=== PATIENT | female | born 1950 | race Caucasian/White ===

== ENCOUNTER → 2018-07-05 09:02 | Outpatient (CLI) | payer MEDICARE, BC, SELFPAY ==
--- NOTE | 2018-07-05 | DI.MG.S_ITS ---
BILATERAL DIGITAL SCREENING MAMMOGRAM 3D/2D WITH CAD: 07/05/2018 CLINICAL: Routine screening. Family history of breast cancer. Comparison is made to exams dated: 10/31/2016 mammogram, 06/17/2014 mammogram - [facility], and 03/13/2012 mammogram - [facility]. The tissue of both breasts is heterogeneously dense. This may lower the sensitivity of mammography. Current study was also evaluated with a Computer Aided Detection (CAD) system. No significant masses, calcifications, or other findings are seen in either breast. There has been no significant interval change. IMPRESSION: NEGATIVE There is no mammographic evidence of malignancy. A 1 year screening mammogram is recommended. This exam was interpreted at Station ID: [id number]. NOTE: For mammograms, a report in lay terms will be sent to the patient. Approximately 15% of breast malignancies will not be visualized mammographically. In the management of a palpable breast mass, a negative mammogram must not discourage biopsy of a clinically suspicious lesion. Electronically Signed By: Nory falcon/ilda:07/07/2018 08:40:58 letter sent: Normal Exam ACR BI-RADS Category 1: Negative [id number]
== END ==
PROVIDERS: Family Provider Internal Medicine; PCP Internal Medicine; Visit Provider Internal Medicine
DX: Z12.31 Encounter for screening mammogram for malignant neoplasm of breast (principal); Z80.3 Family history of malignant neoplasm of breast
CPT/HCPCS: 77063; 77067

== ENCOUNTER → 2018-09-29 14:08 | Outpatient (CLI) | payer MEDICARE, BC, SELFPAY ==
--- NOTE | 2018-09-29 14:13 | DI.US.S_ITS ---
PROCEDURE: US THYROID INDICATIONS: NON TOXIC GOITER TECHNIQUE: Real-time scanning was performed of the thyroid gland, with image documentation. COMPARISON: [facility], US, THYROID, 10/15/2016, 13:16. FINDINGS: Right: Thyroid lobe measures 3.8 x 1.0 x 1.4 cm, and is homogeneous in echotexture. Left: Thyroid lobe measures 3.5 x 1.0 x 1.2 cm, and is homogenous in echotexture. Isthmus: 3.0 mm thick. Nodule number: 1 Location: Left superior Size: 0.2 x 0.1x 0.2 cm. Composition: Cystic Echogenicity: Anechoic Shape: wider than tall. Margins: Smooth Echogenic foci: None Total points: 0 ACR TI-RADS category: Benign colloid cyst. Nodule number: 2 Location: Left mid Size: Unchanged 0.5 x 0.3 x 0.4 cm. Composition: Solid Echogenicity: Isoechoic Shape: wider than tall. Margins: Smooth Echogenic foci: None Total points: 3 ACR TI-RADS category: Mildly suspicious Nodule number: 3 Location: Right mid Size: Unchanged 0.4 x 0.3 x 0.3 cm. Composition: Predominantly solid Echogenicity: Isoechoic Shape: wider than tall. Margins: Smooth Echogenic foci: None Total points: 3 ACR TI-RADS category: Mildly suspicious Nodule number: 4 Location: Right inferior lateral Size: New measuring 0.4 x 0.3 x 0.3 cm. Composition: Predominately solid Echogenicity: Isoechoic Shape: wider than tall. Margins: Smooth Echogenic foci: None Total points: 3 ACR TI-RADS category: Mildly suspicious Nodule number: 5 Location: Right inferior Size: No significant change at 1.4 x 0.8 x 1.0 cm. Composition: Solid Echogenicity: Isoechoic Shape: wider than tall. Margins: Smooth Echogenic foci: None Total points: 4 ACR TI-RADS category: Moderately suspicious IMPRESSION: Bilateral thyroid nodules as above. Recommend continued followup ultrasound as detailed below. ACR TI-RADS definitions and recommendations: TI-RADS 1 (benign): 0 points. FNA not needed. TI-RADS 2 (not suspicious): 2 points. FNA not needed. TI-RADS 3 (mildly suspicious): 3 points. * FNA if 2.5 cm or larger, follow up if 1.5 cm or larger (at 1, 3, and 5 years). TI-RADS 4 (moderately suspicious): 4-6 points. * FNA if 1.5 cm or larger, follow up if 1 cm or larger (at 1, 2, 3, and 5 years). TI-RADS 5 (highly suspicious): 7 points or more. * FNA if 1 cm or larger, follow up if 0.5 cm or larger (every year for 5 years). Dictated by: Loyd Carty [facility] Interpreted: Rodolfo Oconnell MD on 09/29/2018 at 15:56 Approved by: Rodolfo Oconnell M.D. on 09/29/2018 at 16:55
--- NOTE | 2018-09-29 14:13 | DI.US.S_ITS ---
PROCEDURE: US PELVIC COMPLETE INDICATIONS: PELVIC AND PERINEAL PAIN TECHNIQUE: Real-time scanning was performed of the pelvic organs, with image documentation. Additional endovaginal scanning was necessary due to incomplete visualization of the adnexal and endometrial structures by transabdominal scanning. COMPARISON: None. FINDINGS: Transabdominal scanning: Limited scanning through the kidneys shows no hydronephrosis. No pathologic free abdominal or pelvic fluid. Endovaginal scanning: Uterus: Uterus is normal in size at 6.6 x 3.2 x 4.1 cm. The endometrium measures 1.9 mm in combined thickness. Anterior intramural fibroid measuring 2.2 x 1.3 x 1.8 cm. Ovaries: Ovaries normal in size measuring 2.7 x 2.6 x 1.5 cm on the right and 3.0 x 1.8 x 1.5 cm on the left. Simple cyst associated with the left ovary measuring 1.3 cm. Tubular shaped cystic structure seen adjacent to the right ovary with appearance suggesting hydrosalpinx measuring roughly 1.3 x 3.4 cm. IMPRESSION: 1. 2.2 cm intramural fibroid. 2. Probable hydrosalpinx on the right. Recommend short-term followup pelvic ultrasound in 6-12 weeks. 3. Simple left ovarian cyst. Dictated by: Loyd Carty [facility] Interpreted: Rodolfo Oconnell MD on 09/29/2018 at 16:03 Approved by: Rodolfo Oconnell M.D. on 09/29/2018 at 16:55
== END ==
PROVIDERS: Family Provider Internal Medicine; PCP Internal Medicine; Visit Provider Internal Medicine
DX: E04.2 Nontoxic multinodular goiter (principal); D25.1 Intramural leiomyoma of uterus; N83.292 Other ovarian cyst, left side; R10.2 Pelvic and perineal pain
CPT/HCPCS: 76536; 76830; 76856

== ENCOUNTER → 2018-11-24 09:45 | Outpatient (CLI) | payer MEDICARE, BC, SELFPAY ==
--- NOTE | 2018-11-24 | DI.US.S_ITS ---
PROCEDURE: US PELVIC COMPLETE INDICATIONS: PELVIC AND PERINEAL PAIN TECHNIQUE: Real-time scanning was performed of the pelvic organs, with image documentation. Additional endovaginal scanning was necessary due to incomplete visualization of the adnexal and endometrial structures by transabdominal scanning. COMPARISON: [facility], US, US THYROID, 09/29/2018, 14:23. [facility], US, THYROID, 10/15/2016, 13:16. [facility], US, PVE UNILATERAL LEFT, 06/27/2016, 19:14. [facility], US, US PELVIC COMPLETE, 09/29/2018, 14:41. FINDINGS: Transabdominal scanning: Limited scanning through the kidneys shows no hydronephrosis. No pathologic free abdominal or pelvic fluid. Endovaginal scanning: Uterus: Uterus is normal in size at 6.5 x 3.2 x 5.4 cm. The endometrium measures 0.3 cm in combined thickness. There is a 2.2 x 1.3 x 1.9 cm anterior intramural fibroid (previously measured 2.2 x 1.3 x 1.8 cm on 09/29/18) unchanged from prior comparison exam. Ovaries: Left ovary measures 2.5 x 1.9 x 2.0 cm. Right ovary measures 2.2 x 1.7 x 2.0 cm. There is a 1.3 x 1.1 x 1.1 cm oval circumscribed anechoic cyst with posterior acoustic enhancement within the left ovary, consistent with a simple follicle/cyst. There is a large right adnexal cystic structure with internal septations measuring 2.9 x 1.7 x 3.1 cm, suggestive of a right hydrosalpinx; this demonstrates no abnormal vascularity on Doppler ultrasound and previously measured 3.7 x 1.3 x 2.9 cm on 09/29/18. IMPRESSION: 1. Redemonstrated probable right hydrosalpinx, which does not appear significantly changed from prior exam of 09/29/18. Continued sonographic surveillance recommended. 2. 1.3 cm left follicular cyst involving the left ovary. 3. Stable appearance of a 2.2 cm intramural fibroid when compared with prior exam of 09/29/18. Dictated by: Loyd Carty [facility] Interpreted: Js Rodriguez MD on 11/24/2018 at 12:01 Approved by: Js Rodriguez M.D. on 11/24/2018 at 17:12
== END ==
PROVIDERS: PCP Internal Medicine; Visit Provider Internal Medicine
DX: R10.2 Pelvic and perineal pain (principal); D25.1 Intramural leiomyoma of uterus; N83.02 Follicular cyst of left ovary
CPT/HCPCS: 76830; 76856

== ENCOUNTER → 2019-08-19 10:37 | Outpatient (CLI) | payer MEDICARE, BC, SELFPAY ==
--- NOTE | 2019-08-19 | DI.US.S_ITS ---
PROCEDURE: US PELVIC COMPLETE INDICATIONS: CHRONIC SALPINGITIS TECHNIQUE: Real-time scanning was performed of the pelvic organs, with image documentation. Additional endovaginal scanning was necessary due to incomplete visualization of the adnexal and endometrial structures by transabdominal scanning. COMPARISON: [facility], , PELVIC COMPLETE, 11/24/2018, 10:05. [facility], , PELVIC COMPLETE, 09/29/2018, 14:41. FINDINGS: Transabdominal scanning: Limited scanning through the kidneys shows no hydronephrosis. No pathologic free abdominal or pelvic fluid. Endovaginal scanning: Uterus: Uterus is normal in size at 3.2 x 5.3 x 7.1 cm, anteverted. The endometrium measures 1.0 mm in combined thickness. Note is made of a small uterine fibroid measuring 1.8 x 1.4 x 2.0 cm and the left anterior intramural space Ovaries: The right ovary measures 2.3 x 1.4 x 1.2 cm. There is a somewhat tubular structure measuring 1.8 x 1.7 cm in axial dimension and 3.2 cm in length potentially chronic hydrosalpinx. On the left the ovary measures 1.4 x 1.8 x 2.9 cm and contains a simple cyst measuring 1.2 x 1.1 x 1.2 cm IMPRESSION: No significant change from the prior study performed by ultrasound 11/24/18 identifying a somewhat tubular structure adjacent to the right ovary consistent with mild right hydrosalpinx. Dictated by: Christophe Watson M.D. on 08/19/2019 at 12:35 Approved by: Christophe Watson M.D. on 08/19/2019 at 12:44
== END ==
PROVIDERS: PCP Internal Medicine; Visit Provider Internal Medicine
DX: N70.11 Chronic salpingitis (principal); N83.292 Other ovarian cyst, left side
CPT/HCPCS: 76830; 76856

== ENCOUNTER → 2019-10-07 13:35 | Outpatient (CLI) | payer MEDICARE, BC, SELFPAY | PROVIDERS: PCP Internal Medicine; Visit Provider Internal Medicine | DX: M85.852 Other specified disorders of bone density and structure, left thigh (principal); Z78.0 Asymptomatic menopausal state | CPT/HCPCS: 77080 ==

== ENCOUNTER → 2021-01-02 19:12 | Outpatient (ROUT) | payer MEDICARE, BC, SELFPAY ==
[2021-01-02 19:56] LABS: Aspartate Aminotransferase 32 IU/L (14-36); BUN Creatinine Ratio 29.4 (6-22); Blood Urea Nitrogen 15 mg/dL (7-17); Calcium 10.2 mg/dL (8.4-10.2); Carbon Dioxide 32 mmol/L (22-32); Chloride 97 mmol/L (98-107); Cholesterol 152 mg/dL (140-199); Estimated Glomerular Filt Rate > 60.0 mL/min (>60); Glucose 86 mg/dL (80-110); HDL Cholesterol 76 mg/dL (40-60); HEMOLYSIS < 15 (0-50); LDL Cholesterol Calculated 60 mg/dL (<100); Potassium 3.9 mmol/L (3.4-5.1); Sodium 137 mmol/L (137-145); Triglycerides 79 mg/dL (35-150)
[2021-01-02 20:19] LABS: TSH w/ Reflex to FT4 1.74 uIU/mL (0.47-4.68)
== END ==
PROVIDERS: PCP Internal Medicine; Visit Provider Internal Medicine
DX: I10 Essential (primary) hypertension (principal); E78.2 Mixed hyperlipidemia; E04.9 Nontoxic goiter, unspecified; E83.52 Hypercalcemia
CPT/HCPCS: 80048; 80061; 84443; 84450

== ENCOUNTER → 2021-10-17 10:08 | Outpatient (CLI) | payer MEDICARE, BC, SELFPAY ==
--- NOTE | 2021-10-17 | DI.CT.S_ITS ---
PROCEDURE: CT SINUS SCREEN WO CON INDICATIONS: Nasal polyp, unspecified TECHNIQUE: Noncontrast 3.0 mm axial images acquired from the frontal sinuses to the mid-sella, with coronal and sagittal reformats. For radiation dose reduction, the following was used: automated exposure control, adjustment of mA and/or kV according to patient size. COMPARISON: None. FINDINGS: Frontal sinuses, frontoethmoid recesses, and ethmoid air cells are clear bilaterally. Aerated secretions completely fill the right sphenoid sinus and partially fills the left sphenoid sinus. Sphenoid ethmoid recesses are obstructed. Aerated secretions fill much of the left maxillary sinus with a fluid level. The left maxillary sinus outflow tract is considerably narrowed but not entirely obstructed. The right maxillary sinus outflow tract is widely patent. There is no paranasal sinus wall thickening or sclerosis to suggest chronic/recurrent sinusitis. Expansile lesion in the left nasal cavity is suggestive of a polyp. There is demineralization or erosion of the left middle and inferior nasal turbinates. Small des bullosa on the right. No Eugenio cell. IMPRESSION: Suspected expansile left nasal cavity polyp/mass with erosive changes of the left inferior and middle nasal turbinates. Findings of acute sinusitis in the left maxillary sinus and bilateral sphenoid sinuses. Dictated by: Obed Thompson M.D. on 10/17/2021 at 10:44 Approved by: Obed Thompson M.D. on 10/17/2021 at 10:47
== END ==
PROVIDERS: PCP Internal Medicine; Referring Provider Otolaryngology; Visit Provider Otolaryngology
DX: J33.9 Nasal polyp, unspecified (principal); J01.80 Other acute sinusitis; D16.4 Benign neoplasm of bones of skull and face
CPT/HCPCS: 70486

== ENCOUNTER → 2021-12-20 15:17 | Outpatient (CLI) | payer MEDICARE, BC, SELFPAY ==
[2021-12-20 17:23] LABS: Estimated Glomerular Filt Rate > 60 mL/min (>60)
== END ==
PROVIDERS: PCP Internal Medicine; Referring Provider Otolaryngology; Visit Provider Otolaryngology
DX: Z01.812 Encounter for preprocedural laboratory examination (principal)
CPT/HCPCS: 36415; 82565

== ENCOUNTER → 2022-03-23 08:44 | Outpatient (CLI) | payer MEDICARE, BC, SELFPAY ==
[2022-03-23 09:32] LABS: Hemoglobin 12.9 g/dL (12.0-16.0); Mean Corpuscular HGB Conc 34.8 % (30-36); Mean Corpuscular Hemoglobin 32.3 PG (26-34); Mean Corpuscular Volume 92.7 fL (80-100); Platelet Count 295 X10^3/uL (150-400); Red Blood Cell Count 3.99 X10^6/uL (4.0-5.2); Red Cell Distribution Width 13.2 % (11.6-14.8); White Blood Cell Count 5.2 X10^3/uL (4.5-11.0)
[2022-03-23 09:45] LABS: Alanine Aminotransferase 16 IU/L (<35); Albumin 4.6 g/dL (3.5-5.0); Albumin Globulin Ratio 1.8 (1.0-2.8); Alkaline Phosphatase 44 U/L (38-126); Aspartate Aminotransferase 26 IU/L (14-36); BUN Creatinine Ratio 27.3 (6-22); Bilirubin Total 0.7 mg/dL (0.2-1.3); Blood Urea Nitrogen 15 mg/dL (7-17); Calcium 9.5 mg/dL (8.4-10.2); Carbon Dioxide 37 mmol/L (22-32); Chloride 96 mmol/L (98-107); Cholesterol 146 mg/dL (140-199); Estimated Glomerular Filt Rate > 60 mL/min (>60); Globulin 2.6 g/dL (1.7-4.1); Glucose 77 mg/dL (80-110); HDL Cholesterol 63 mg/dL (40-60); HEMOLYSIS < 15 (0-50); LDL Cholesterol Calculated 61 mg/dL (<100); Potassium 3.3 mmol/L (3.4-5.1); Sodium 137 mmol/L (137-145); Total Protein 7.2 g/dL (6.3-8.2); Triglycerides 111 mg/dL (35-150)
[2022-03-23 10:14] LABS: TSH w/ Reflex to FT4 1.62 uIU/mL (0.47-4.68)
[2022-03-25 05:36] LABS: Calcium 9.9 mg/dL (8.7-10.3); Parathyroid Hormone, Intact 43 pg/mL (15-65)
== END ==
PROVIDERS: PCP Internal Medicine; Referring Provider Internal Medicine; Visit Provider Internal Medicine
DX: E04.1 Nontoxic single thyroid nodule (principal); I10 Essential (primary) hypertension; E78.2 Mixed hyperlipidemia; Z86.39 Personal history of other endocrine, nutritional and metabolic disease
CPT/HCPCS: 36415; 80053; 80061; 82310; 83970; 84443; 85027

== ENCOUNTER → 2022-04-23 09:25 | Outpatient (CLI) | payer MEDICARE, BC, SELFPAY ==
--- NOTE | 2022-04-23 09:26 | DI.US.S_ITS ---
PROCEDURE: US THYROID INDICATIONS: THYROID NODULE FOLLOW UP TECHNIQUE: Real-time scanning was performed of the thyroid gland, with image documentation. COMPARISON: [facility], US, US THYROID, 09/29/2018, 14:23. FINDINGS: Right: 4.7 x 1.5 x 1.1 cm. Left: 3.8 x 1.1 x 1.3 cm Isthmus: 0.3 cm. Multiple thyroid nodules are present, subcentimeter nodules that appear to be colloid cysts do not require dedicated follow-up and are not explicitly outlined on this report. Nodule 1: Right mid region measuring 4 x 4 x 3 mm, stable from prior. Solid and hypoechoic. This does not require dedicated follow-up. Nodule 2: Right inferior region measuring 17 x 9 x 12 mm, previously 14 x 8 x 10 mm. It is solid and hyperechoic, with smooth margins. This appears taller than wide. TR-4 FNA is recommended. IMPRESSION: Right inferior thyroid nodule is taller than wide and has slightly grown compared to prior imaging. TR 4. FNA is recommended. Dictated by: Teofilo Wan M.D. on 04/23/2022 at 15:23 Approved by: Teofilo Wan M.D. on 04/23/2022 at 15:27
== END ==
PROVIDERS: PCP Internal Medicine; Referring Provider Internal Medicine; Visit Provider Internal Medicine
DX: Z78.0 Asymptomatic menopausal state (principal); E04.2 Nontoxic multinodular goiter; M85.89 Other specified disorders of bone density and structure, multiple sites; Z86.39 Personal history of other endocrine, nutritional and metabolic disease; Z13.820 Encounter for screening for osteoporosis; Z85.828 Personal history of other malignant neoplasm of skin
CPT/HCPCS: 76536; 77080

== ENCOUNTER → 2022-05-01 08:20 | Outpatient (CLI) | payer MEDICARE, BC, SELFPAY ==
--- NOTE | 2022-05-01 | PATH_ITS ---
Note [facility] Accession Number: [id number] TESTS RESULT FLAG UNITS REF RANGE LAB Clinician Provided Cytology Information No. of containers..01 Other (Miscellaneous) No. of containers..00 Previously Prepared Cytology Slide Source: RIGHT THYROID NODULE DIAGNOSIS: RIGHT THYROID NODULE, FINE NEEDLE ASPIRATION. NEGATIVE FOR MALIGNANT CELLS. [place] CATEGORY II. SPECIMEN CONSISTS OF BENIGN FOLLICULAR CELLS, HEMOSIDERIN-LADEN MACROPHAGES, COLLOID, AND BLOOD. THIS PATTERN IS CONSISTENT WITH A BENIGN FOLLICULAR NODULE. Pathologist ICD10: E04.1 Signed out by: Ananya Jimenez MD, Pathologist NPI- [id number] Performed by: Sariah Santos, [employer] ([facility]) Gross description: 30 CC, COLORLESS, CLEAR RECIEVED: IN CYTOLYT WITH 5 ALCOHOL FIXED AND 5 QUICK STAINED SLIDES ALSO 1 RNA VIAL WAS RECEIVED. /[facility] 05/02/[address] [place] [address] FLAG LEGEND: L-Low Normal,H-High Normal,LL-Alert Low,HH-Alert High <-Panic Low,>-Panic High,A-Abnormal,AA-Critical Abnormal Performed at: 01 =Z [facility] Cytology [address], [place] [address] Smooth Montalvo MD, Performed at: 01 [facility] Cytology [address], [place], [place] [id number] MD Smooth Montalvo MD Phone: [phone]
--- NOTE | 2022-05-01 08:22 | DI.US.S_ITS ---
PROCEDURE: US FINE NEEDLE ASPIRATION INDICATIONS: NODULE TECHNIQUE: The indications, alternatives, benefits, risks, and complications of the procedure were explained to the patient. Written informed consent was obtained and placed in the chart. The thyroid region was examined sonographically and a site was chosen for ultrasound guided percutaneous sampling. The skin was prepared and draped in the usual fashion, and anesthetized with 1% lidocaine infiltrated from the skin down to the thyroid gland. Multiple passes were then performed, with contents emptied into an appropriate pathology specimen container. A bandage was applied to the area of access at completion of the study. COMPARISON: None. FINDINGS: Location(s) of lesion(s) sampled: Right inferior thyroid [place]: 25 gauge hypodermic needles. Number of passes: 6 Medications: 1% lidocaine for local anaesthesia. Complications: None. IMPRESSION: Successful ultrasound-guided thyroid nodule fine needle aspiration, with cytology results pending. Please see chart below for management recommendations based on cytology results. [facility] ReportingRecommendationsNon-diagnostic* Repeat US-guided FNA, with on-site cytology evaluation if possible. * Repeated non-diagnostic nodules without high suspicion US features: close observation vs surgical consult. * Consider surgery if nodule has high suspicion US features, grows >20% in 2 dimensions on followup, or patient has clinical risk factors for malignancy. Benign* If nodule has high suspicion US features: repeat US and FNA within 12 months. * If nodule has low to intermediate suspicion US features: repeat US at 12-24 months. If nodule grows (20% increase in at least 2 dimensions, with minimal increase of 2 mm or >50% change in volume), or development of new suspicious US features, then repeat FNA or continue followup. * If nodule has very low suspicion US features: followup US at >24 months. Atypia of undetermined significance, follicular lesion of undetermined significanceRepeat FNA, molecular testing, followup US, or surgical consult.Follicular neoplasm, suspicious for follicular neoplasmSurgical consult; also consider molecular testing. Suspicious for malignancySurgical consult.MalignantSurgical consult. Dictated by: Nory Rodriguez M.D. on 05/01/2022 at 12:53 Approved by: Nory Rodriguez M.D. on 05/01/2022 at 12:53
== END ==
PROVIDERS: PCP Internal Medicine; Referring Provider Internal Medicine; Visit Provider Internal Medicine
DX: E04.1 Nontoxic single thyroid nodule (principal)
CPT/HCPCS: 10005

== ENCOUNTER → 2023-11-26 10:43 | Outpatient (CLI) | payer MEDICARE, BC, SELFPAY ==
[2023-11-26 11:57] LABS: Aspartate Aminotransferase 30 IU/L (14-36); BUN Creatinine Ratio 27.5 (6-22); Blood Urea Nitrogen 14 mg/dL (7-17); Carbon Dioxide 31 mmol/L (22-32); Chloride 98 mmol/L (98-107); Cholesterol 149 mg/dL (140-199); Estimated Glomerular Filt Rate > 60 mL/min (>60); Glucose 85 mg/dL (80-110); HDL Cholesterol 81 mg/dL (40-60); HEMOLYSIS < 15 (0-50); LDL Cholesterol Calculated 53 mg/dL (<100); Potassium 4.2 mmol/L (3.4-5.1); Sodium 136 mmol/L (137-145); Triglycerides 73 mg/dL (35-150)
[2023-11-28 14:43] LABS: Calcium 9.6 mg/dL (8.7-10.3); Parathyroid Hormone, Intact 66 pg/mL (15-65)
== END ==
PROVIDERS: PCP Internal Medicine; Referring Provider Internal Medicine; Visit Provider Internal Medicine
DX: E78.2 Mixed hyperlipidemia (principal); I10 Essential (primary) hypertension; Z86.39 Personal history of other endocrine, nutritional and metabolic disease
CPT/HCPCS: 36415; 80048; 80061; 82310; 83970; 84450

== ENCOUNTER → 2023-12-24 09:39 | Outpatient (CLI) | payer MEDICARE, BC, SELFPAY ==
--- NOTE | 2023-12-24 09:40 | DI.US.S_ITS ---
PROCEDURE: US THYROID INDICATIONS: thyroid nodule TECHNIQUE: Real-time scanning was performed of the thyroid gland, with image documentation. COMPARISON: [facility], US, US FINE NEEDLE ASPIRATION, 05/01/2022, 8:29. [facility], US, US THYROID, 04/23/2022, 11:04. FINDINGS: Thyroid: Right lobe measures 4.4 x 1.4 x 1.4 cm. Left lobe measures 3.6 x 1.1 x 1.2 cm. Isthmus is 0.2 cm thick. Echotexture is heterogeneous. Nodule number: 1 Location: Right mid Size: 0.6 x 0.4 x 0.4 cm; previously 0.4 x 0.4 x 0.3 cm. Composition: Solid Echogenicity: High so cord Shape: wider than tall. Margins: Smooth Echogenic foci: None Total points: 3 ACR TI-RADS category: 3 Nodule number: 2 Location: Right inferior Size: 1.7 x 1.4 x 1.1 cm; previously 1.7 x 0.9 x 1.2 cm. Composition: Solid Echogenicity: Isoechoic Shape: Taller than right. Margins: Smooth Echogenic foci: None Total points: 6 ACR TI-RADS category: 4 IMPRESSION: 1. No significant change in right thyroid nodules. Nodule 2 was previously biopsied. Please correlate with biopsy result. ACR TI-RADS definitions and recommendations: TI-RADS 1 (benign): 0 points. FNA not needed. TI-RADS 2 (not suspicious): 2 points. FNA not needed. TI-RADS 3 (mildly suspicious): 3 points. * FNA if 2.5 cm or larger, follow up if 1.5 cm or larger (at 1, 3, and 5 years). TI-RADS 4 (moderately suspicious): 4-6 points. * FNA if 1.5 cm or larger, follow up if 1 cm or larger (at 1, 2, 3, and 5 years). TI-RADS 5 (highly suspicious): 7 points or more. * FNA if 1 cm or larger, follow up if 0.5 cm or larger (every year for 5 years). Dictated by: Lauryn Zambrano M.D. on 12/25/2023 at 13:27 Approved by: Lauryn Zambrano M.D. on 12/25/2023 at 13:36
== END ==
LOC: US 09:40
PROVIDERS: PCP Internal Medicine; Referring Provider Internal Medicine; Visit Provider Internal Medicine
DX: E04.2 Nontoxic multinodular goiter (principal)
CPT/HCPCS: 76536

== ENCOUNTER → 2025-04-05 12:05 | Outpatient (CLI) | payer MEDICARE, BC, SELFPAY ==
[2025-04-05 12:51] LABS: Appearance Urine UA CLEAR; Bilirubin Urine UA NEGATIVE (NEGATIVE); Color Urine UA YELLOW; Glucose Urine UA NEGATIVE (Negative); Ketones Urine UA NEGATIVE (NEGATIVE); Leukocyte Esterase Urine UA NEGATIVE (NEGATIVE); Nitrite Urine UA NEGATIVE (Negative); Occult Blood Urine UA NEGATIVE (Negative); Protein Urine UA NEGATIVE (Negative); Specific Gravity Urine UA <=1.005 (1.000-1.035); Urobilinogen Urine UA 0.2 E.U./dL (0.2)
[2025-04-05 12:57] LABS: pH Urine UA 6.5 (4.5-8.0)
[2025-04-05 13:07] LABS: Culture Indicated Urine Cult Not Indicated
== END ==
PROVIDERS: PCP Family Medicine; Visit Provider Obstetrics & Gynecology Gynecology
DX: N81.9 Female genital prolapse, unspecified (principal); N90.4 Leukoplakia of vulva
CPT/HCPCS: 81001